=== PATIENT | female | born 1975 | race Caucasian/White ===

== ENCOUNTER 2017-06-24 01:58 | Emergency (ER) | payer MEDICAID ==
[~2017-06-24] VITALS: Ht 152.4 cm; Wt 63.6 kg
[~2017-06-24 01:58] MED LIST: NOCURR
[2017-06-24 02:01] VITALS: BP 163/97
[2017-06-24] MEDS ORDERED: OMEP20 PO (02:08)
[2017-06-24] MEDS ORDERED: SERT50TA12 PO (02:08)
== END 2017-06-24 03:46 | disposition left against medical advice (07) ==
LOC: EMS 02:00
DX: Z53.21 Procedure and treatment not carried out due to patient leaving prior to being seen by health care provider (principal)